=== PATIENT | female | born 1965 | race Hispanic/Latino ===

== ENCOUNTER 2021-10-06 13:26 | Outpatient (CLI) | payer MEDICARE | END 2021-10-06 13:27 | disposition home or self-care (01) | LOC: CSHSPEC 13:26 | PROVIDERS: ATTEND Orthopaedic Surgery | DX: M54.50 Low back pain, unspecified (principal); M54.16 Radiculopathy, lumbar region; M48.061 Spinal stenosis, lumbar region without neurogenic claudication | CPT/HCPCS: 71045; 72148 ==

== ENCOUNTER 2021-10-27 12:57 | Outpatient (CLI) | payer MEDICARE ==
[2021-10-27 14:39] LABS: Hemoglobin 10.7 g/dL (12.0-15.5); Mean Corpuscular HGB CONC 32.4 g/dL (32.0-36.0); Mean Corpuscular Hemoglobin 30.8 pg (27.0-33.0); Mean Corpuscular Volume 95.1 fl (81.6-98.3); Mean Platelet Volume 10.4 fl (7.4-10.4); Platelet Count 276 10x3/uL (150-450); Red Blood Cell (RBC) Count 3.47 10x6/uL (3.90-5.03); White Blood Cell (WBC) Count 9.8 10x3/uL (3.5-10.5)
[2021-10-27 15:02] LABS: INR-International Normal Ratio 0.9; PTT 26.6 sec (22.0-33.0); Prothrombin Time 10.5 sec (9.5-12.1)
[2021-10-27 15:05] LABS: Anion Gap 17 mmol/L (10-20); BUN (Urea Nitrogen) 27 mg/dL (9.8-20.1); Calc. Creatinine Clearance 0 mL/min (70-130); Calcium 8.6 mg/dL (7.8-10.44); Carbon Dioxide 27 mmol/L (22-29); Chloride 98 mmol/L (98-107); Glucose 452 mg/dL (70-105); Potassium 3.8 mmol/L (3.5-5.1); Sodium 138 mmol/L (136-145)
[2021-10-28 11:15] LABS: SARS-CoV-2 PCR by NAA Not Detected (NotDetected)
== END 2021-10-27 12:58 | disposition home or self-care (01) ==
LOC: CSHLAB 12:57
PROVIDERS: ATTEND Orthopaedic Surgery
DX: Z01.812 Encounter for preprocedural laboratory examination (principal); Z20.822 Contact with and (suspected) exposure to COVID-19; M54.50 Low back pain, unspecified; M54.16 Radiculopathy, lumbar region
CPT/HCPCS: 80048; 85027; 85610; 85730; 86850; 86900; 86901; U0003; U0005

== ENCOUNTER 2021-11-01 05:40 | Inpatient (IN) | payer MEDICARE, OTHER ==
[2021-10-25 12:01] VITALS: BMI 33.7
[2021-10-27 14:39] LABS: Hemoglobin 10.7 g/dL (12.0-15.5); Mean Corpuscular HGB CONC 32.4 g/dL (32.0-36.0); Mean Corpuscular Hemoglobin 30.8 pg (27.0-33.0); Mean Corpuscular Volume 95.1 fl (81.6-98.3); Mean Platelet Volume 10.4 fl (7.4-10.4); Platelet Count 276 10x3/uL (150-450); Red Blood Cell (RBC) Count 3.47 10x6/uL (3.90-5.03); White Blood Cell (WBC) Count 9.8 10x3/uL (3.5-10.5)
[2021-10-27 15:02] LABS: INR-International Normal Ratio 0.9; PTT 26.6 sec (22.0-33.0); Prothrombin Time 10.5 sec (9.5-12.1)
[2021-10-27 15:05] LABS: Anion Gap 17 mmol/L (10-20); BUN (Urea Nitrogen) 27 mg/dL (9.8-20.1); Calc. Creatinine Clearance 0 mL/min (70-130); Calcium 8.6 mg/dL (7.8-10.44); Carbon Dioxide 27 mmol/L (22-29); Chloride 98 mmol/L (98-107); Glucose 452 mg/dL (70-105); Potassium 3.8 mmol/L (3.5-5.1); Sodium 138 mmol/L (136-145)
[2021-10-28 11:15] LABS: SARS-CoV-2 PCR by NAA Not Detected (NotDetected)
[2021-11-01] MEDS ORDERED: Lidocaine 1% PF 5 ML VIAL ONE (06:29)
[2021-11-01] MEDS ORDERED: PROPOFOL 20 ML ONE (06:29)
[2021-11-01] MEDS ORDERED: Succinylcholine 200 MG/10 ml SYRINGE FS ONE (06:30)
[2021-11-01] MEDS ORDERED: Lidocaine 1% MPF 2 ML VIAL ONE (06:31)
[2021-11-01] MEDS ORDERED: Famotidine/PF 20 mg/2ml Vial ONE (06:32)
[2021-11-01] MEDS ORDERED: Promethazine HCl 25 MG/ML VIAL ONE (06:35)
[2021-11-01] MEDS ORDERED: HYDROmorphone 0.5 MG/0.5 ML SYRINGE ONE ×2 (06:36→06:37)
[2021-11-01] MEDS ORDERED: Propofol 1,000 MG/100 ML VIAL IV ONE (06:37)
[2021-11-01] MEDS ORDERED: Bupivacaine 0.25% HCL 30 ML VIAL ONE (06:42)
[2021-11-01] MEDS ORDERED: EPINEPHrine 1 MG/ML AMP ONE (06:42)
[2021-11-01] MEDS ORDERED: Insulin Regular 300 UNITS/3 ML VIAL ONE (06:44)
[2021-11-01] MEDS ORDERED: Morphine 4 MG/ML VIAL ONE ×2 (07:44→08:51)
[2021-11-01] MEDS ORDERED: ceFAZolin 2 GM/Dextrose 50 ML IVPB ONE (09:04)
[2021-11-01] MEDS ORDERED: Midazolam HCl 2 mg/2 ml Vial ONE (09:14)
[2021-11-01] MEDS ORDERED: ePHEDrine Sulfate 50 MG/10 ML VIAL ONE (10:11)
[2021-11-01] MEDS ORDERED: Dexamethasone 4 mg/ml Vial ONE (10:35)
[2021-11-01] MEDS ORDERED: Ondansetron PF 4 MG/2 ML Vial ONE (10:35)
[2021-11-01] MEDS ORDERED: Morphine 4 MG/ML VIAL SLOW IVP PRN (13:08)
[2021-11-01] MEDS ORDERED: traZODone HCl 50 MG TAB PO PRN (13:11)
[2021-11-01] MEDS ORDERED: TETANUS AND DIPHTHERIA TOX/PF 0.5 ML DISP.SYRIN IM SCH (13:15)
[2021-11-01] MEDS ORDERED: Labetalol HCl 100 MG/20 ML VIAL ONE (14:30)
[2021-11-01] MEDS ORDERED: Dextrose 5% in Water 1,000 ML IV PRN (16:48)
[2021-11-01] MEDS ORDERED: Dextrose 50% Abboject 50 ML SYRINGE SLOW IVP PRN (16:48)
[2021-11-01] MEDS ORDERED: hydrALAZINE 20 MG/ML VIAL SLOW IVP PRN (16:53)
[2021-11-01] MEDS: HumaLOG 300 UNITS/3 ML VIAL SC PRN ×2 (17:49→21:42)
[2021-11-01] MEDS ORDERED: FLU VACC QS2021-22(6MOS UP)/PF 60 MCG/0.5 ML SYRINGE IM ONE (18:00)
[2021-11-01] MEDS: HYDROcodone/Acetaminophen 10/325 mg Tablet PO PRN (21:29)
[2021-11-01] MEDS: Aspirin 81 mg Enteric Coated Tablet PO SCH (21:30)
[2021-11-01] MEDS: Gabapentin 400 MG CAP PO SCH (21:30)
[2021-11-01] MEDS: Cyclobenzaprine 10 MG TAB PO SCH (21:30)
[2021-11-01] MEDS: Torsemide 20 MG TAB PO SCH (21:31)
[2021-11-01] MEDS: ceFAZolin 2 GM/Dextrose 50 ML 2 GM in Premix Bag 1 BAG IVPB SCH (21:32)
[2021-11-02] MEDS: HYDROcodone/Acetaminophen 10/325 mg Tablet PO PRN ×2 (05:57→20:28)
[2021-11-02] MEDS: HumaLOG 300 UNITS/3 ML VIAL SC PRN ×4 (05:57→20:29)
[2021-11-02] MEDS ORDERED: Ventolin HFA Inhaler 60 PUFF INHALER INH PRN (09:00)
[2021-11-02] MEDS ORDERED: Carvedilol 25 MG TAB PO SCH (09:00)
[2021-11-02] MEDS: Gabapentin 400 MG CAP PO SCH ×2 (09:33→20:27)
[2021-11-02] MEDS: Clopidogrel Bisulfate 75 MG TAB PO SCH (09:33)
[2021-11-02] MEDS: Ezetimibe 10 MG TAB PO SCH (09:33)
[2021-11-02] MEDS: Aspirin 81 mg Enteric Coated Tablet PO SCH ×2 (09:34→20:27)
[2021-11-02] MEDS: Cyclobenzaprine 10 MG TAB PO SCH ×2 (09:34→20:27)
[2021-11-02] MEDS: Atorvastatin Calcium 40 MG TAB PO SCH (09:34)
[2021-11-02] MEDS: FLUoxetine HCl 20 MG CAP PO SCH (09:34)
[2021-11-02] MEDS: ceFAZolin 2 GM/Dextrose 50 ML 2 GM in Premix Bag 1 BAG IVPB SCH ×2 (09:35→20:28)
[2021-11-02] MEDS: Torsemide 20 MG TAB PO SCH ×2 (09:38→20:27)
[2021-11-02] MEDS ORDERED: Lantus 1000 UNITS/10 ML VIAL SC SCH (09:45)
[2021-11-02] MEDS: Carvedilol 25 MG TAB PO SCH ×2 (14:48→20:28)
[2021-11-03] MEDS: HYDROcodone/Acetaminophen 10/325 mg Tablet PO PRN (05:37)
[2021-11-03] MEDS: ceFAZolin 2 GM/Dextrose 50 ML 2 GM in Premix Bag 1 BAG IVPB SCH (08:01)
[2021-11-03] MEDS: Gabapentin 400 MG CAP PO SCH ×2 (08:03→20:22)
[2021-11-03] MEDS: Atorvastatin Calcium 40 MG TAB PO SCH (08:04)
[2021-11-03] MEDS: Ezetimibe 10 MG TAB PO SCH (08:05)
[2021-11-03] MEDS: FLUoxetine HCl 20 MG CAP PO SCH (08:05)
[2021-11-03] MEDS: Cyclobenzaprine 10 MG TAB PO SCH ×2 (08:05→20:07)
[2021-11-03] MEDS: Aspirin 81 mg Enteric Coated Tablet PO SCH ×2 (08:05→20:07)
[2021-11-03] MEDS: traMADol HCl 50 MG TAB PO PRN (08:06)
[2021-11-03] MEDS: Lantus 1000 UNITS/10 ML VIAL SC SCH (08:06)
[2021-11-03] MEDS: Carvedilol 25 MG TAB PO SCH ×2 (08:57→20:22)
[2021-11-03] MEDS: Torsemide 20 MG TAB PO SCH (08:59)
[2021-11-03] MEDS: Clopidogrel Bisulfate 75 MG TAB PO SCH (10:00)
[2021-11-03] MEDS ORDERED: Sodium Chloride 0.9% 1,000 ML IV SCH (11:15)
[2021-11-03 12:06] LABS: #Eosinphils 0.1 10x3/uL (0.0-0.5); #Neutrophils 8.3 10x3/uL (1.5-8.4); %Basophils 0.3 % (0.0-2.0); %Eosinophils 1.1 % (0.0-6.0); %Monocytes 8.9 % (0.0-10.0); %Neutrophils 73.3 % (40.0-75.0); Hemoglobin 8.9 g/dL (12.0-15.5); Mean Corpuscular HGB CONC 31.6 g/dL (32.0-36.0); Mean Corpuscular Hemoglobin 30.7 pg (27.0-33.0); Mean Corpuscular Volume 97.2 fl (81.6-98.3); Mean Platelet Volume 10.6 fl (7.4-10.4); Platelet Count 212 10x3/uL (150-450); RBC Distribution Width 12.9 % (11.5-14.5); White Blood Cell (WBC) Count 11.3 10x3/uL (3.5-10.5)
[2021-11-03 12:12] LABS: Anion Gap 13 mmol/L (10-20); BUN (Urea Nitrogen) 38 mg/dL (9.8-20.1); Calc. Creatinine Clearance 35 mL/min (70-130); Calcium 8.3 mg/dL (7.8-10.44); Carbon Dioxide 26 mmol/L (22-29); Chloride 105 mmol/L (98-107); Glucose 68 mg/dL (70-105); Potassium 3.8 mmol/L (3.5-5.1); Sodium 140 mmol/L (136-145)
[2021-11-03 20:48] LABS: Actual Bicarbonate (HCO3a) 25.8 mEq/L (22-28); Base Excess (BEa) 0.4 mEq/L (-2.0 to +3.0); CO2 Tension 45.2 mmHg (35.0-45.0); Calcium, Ionized (arterial) 1.04 mmol/L (1.12-1.30); Carboxyhemoglobin (COHb) 0.5 gm% (0.0-3.0); O2 Tension (PaO2), arterial 64.9 mmHg (80.0-100.0); Potassium - ABG Lab 4.1 mmol/L (3.70-5.30); Puncture Site RBA; pH, Arterial 7.37 (7.35-7.45)
[2021-11-04 04:12] LABS: #Eosinphils 0.1 10x3/uL (0.0-0.5); #Monocytes 1.2 10x3/uL (0.0-1.1); #Neutrophils 11.4 10x3/uL (1.5-8.4); %Basophils 0.1 % (0.0-2.0); %Eosinophils 0.8 % (0.0-6.0); %Lymphocytes 10.4 % (18.0-47.0); %Monocytes 8.7 % (0.0-10.0); %Neutrophils 79.6 % (40.0-75.0); Hemoglobin 8.8 g/dL (12.0-15.5); Mean Corpuscular HGB CONC 32.2 g/dL (32.0-36.0); Mean Corpuscular Hemoglobin 31.2 pg (27.0-33.0); Mean Corpuscular Volume 96.8 fl (81.6-98.3); Mean Platelet Volume 10.4 fl (7.4-10.4); Platelet Count 230 10x3/uL (150-450); RBC Distribution Width 12.7 % (11.5-14.5); Red Blood Cell (RBC) Count 2.82 10x6/uL (3.90-5.03); White Blood Cell (WBC) Count 14.3 10x3/uL (3.5-10.5)
[2021-11-04 04:18] LABS: Anion Gap 14 mmol/L (10-20); BUN (Urea Nitrogen) 39 mg/dL (9.8-20.1); Calc. Creatinine Clearance 36 mL/min (70-130); Calcium 8.3 mg/dL (7.8-10.44); Carbon Dioxide 25 mmol/L (22-29); Chloride 105 mmol/L (98-107); Potassium 4.2 mmol/L (3.5-5.1); Sodium 140 mmol/L (136-145)
[2021-11-04 04:21] LABS: Glucose 44 mg/dL (70-105)
[2021-11-04] MEDS: Carvedilol 25 MG TAB PO SCH ×2 (09:11→21:03)
[2021-11-04] MEDS: Cyclobenzaprine 10 MG TAB PO SCH ×2 (09:13→21:03)
[2021-11-04] MEDS: Aspirin 81 mg Enteric Coated Tablet PO SCH ×2 (09:13→21:03)
[2021-11-04] MEDS: FLUoxetine HCl 20 MG CAP PO SCH (09:13)
[2021-11-04] MEDS: Lantus 1000 UNITS/10 ML VIAL SC SCH (09:14)
[2021-11-04] MEDS: Atorvastatin Calcium 40 MG TAB PO SCH (09:14)
[2021-11-04] MEDS: Gabapentin 400 MG CAP PO SCH (09:15)
[2021-11-04] MEDS: Ezetimibe 10 MG TAB PO SCH (10:49)
[2021-11-04] MEDS: Clopidogrel Bisulfate 75 MG TAB PO SCH (10:49)
[2021-11-04] MEDS: HumaLOG 300 UNITS/3 ML VIAL SC PRN (17:21)
[2021-11-05] MEDS: HYDROcodone/Acetaminophen 10/325 mg Tablet PO PRN ×2 (03:11→21:03)
[2021-11-05 05:16] LABS: #Monocytes 1.1 10x3/uL (0.0-1.1); %Basophils 0.2 % (0.0-2.0); %Eosinophils 0.3 % (0.0-6.0); %Lymphocytes 11.2 % (18.0-47.0); %Monocytes 9.8 % (0.0-10.0); %Neutrophils 78.2 % (40.0-75.0); Mean Corpuscular HGB CONC 32.8 g/dL (32.0-36.0); Mean Corpuscular Hemoglobin 31.1 pg (27.0-33.0); Mean Corpuscular Volume 94.9 fl (81.6-98.3); Mean Platelet Volume 10.5 fl (7.4-10.4); Platelet Count 225 10x3/uL (150-450); RBC Distribution Width 12.6 % (11.5-14.5); Red Blood Cell (RBC) Count 2.57 10x6/uL (3.90-5.03); White Blood Cell (WBC) Count 11.6 10x3/uL (3.5-10.5)
[2021-11-05 05:36] LABS: Anion Gap 14 mmol/L (10-20); BUN (Urea Nitrogen) 47 mg/dL (9.8-20.1); Calc. Creatinine Clearance 38 mL/min (70-130); Calcium 8.4 mg/dL (7.8-10.44); Carbon Dioxide 24 mmol/L (22-29); Chloride 105 mmol/L (98-107); Glucose 67 mg/dL (70-105); Potassium 4.2 mmol/L (3.5-5.1); Sodium 139 mmol/L (136-145)
[2021-11-05] MEDS ORDERED: Metolazone 5 MG TAB PO SCH (09:00)
[2021-11-05] MEDS ORDERED: Dextrose 5 %-0.45 % NaCl 1,000 ML IV SCH (09:00)
[2021-11-05] MEDS ORDERED: Sodium Chloride 0.45% 1,000 ML IV SCH (09:15)
[2021-11-05] MEDS: Carvedilol 25 MG TAB PO SCH ×2 (10:08→21:03)
[2021-11-05] MEDS: Aspirin 81 mg Enteric Coated Tablet PO SCH ×2 (10:08→21:03)
[2021-11-05] MEDS: Clopidogrel Bisulfate 75 MG TAB PO SCH (10:09)
[2021-11-05] MEDS: Ezetimibe 10 MG TAB PO SCH (10:09)
[2021-11-05] MEDS: Atorvastatin Calcium 40 MG TAB PO SCH (10:10)
[2021-11-05] MEDS: FLUoxetine HCl 20 MG CAP PO SCH (10:10)
[2021-11-05] MEDS: Morphine 4 MG/ML VIAL SLOW IVP PRN ×3 (10:11→17:25)
[2021-11-05] MEDS: HumaLOG 300 UNITS/3 ML VIAL SC PRN (17:13)
[2021-11-06 00:11] LABS: Bilirubin Neg (Negative); Blood, Urine 50 (Negative); Clarity Cloudy (Clear); Glucose, Urine (Dipstick) Normal (Negative); Ketone, Urine Negative (Negative); Leukocyte 25 (Negative); Nitrite Negative (Negative); Protein, Urine (Dipstick) 100 mg/dl (Neg-Trace); Urobilinogen Normal mg/dL (Less than 2)
[2021-11-06 00:26] LABS: Bacteria/HPF 3+ HPF (None Seen); Yeast-Budding 1+ HPF (None Seen)
[2021-11-06 00:27] LABS: Urine Culture Reflex No No
[2021-11-06 05:23] LABS: #Eosinphils 0.1 10x3/uL (0.0-0.5); #Neutrophils 6.1 10x3/uL (1.5-8.4); %Basophils 0.2 % (0.0-2.0); %Eosinophils 1.5 % (0.0-6.0); %Lymphocytes 15.8 % (18.0-47.0); %Monocytes 11.9 % (0.0-10.0); %Neutrophils 70.3 % (40.0-75.0); Mean Corpuscular HGB CONC 31.5 g/dL (32.0-36.0); Mean Corpuscular Hemoglobin 30.7 pg (27.0-33.0); Mean Corpuscular Volume 97.4 fl (81.6-98.3); Mean Platelet Volume 10.4 fl (7.4-10.4); Platelet Count 237 10x3/uL (150-450); RBC Distribution Width 12.6 % (11.5-14.5); Red Blood Cell (RBC) Count 2.28 10x6/uL (3.90-5.03); White Blood Cell (WBC) Count 8.7 10x3/uL (3.5-10.5)
[2021-11-06 05:27] LABS: Anion Gap 12 mmol/L (10-20); BUN (Urea Nitrogen) 51 mg/dL (9.8-20.1); Calc. Creatinine Clearance 42 mL/min (70-130); Calcium 8.4 mg/dL (7.8-10.44); Carbon Dioxide 25 mmol/L (22-29); Chloride 102 mmol/L (98-107); Glucose 139 mg/dL (70-105); Potassium 4.3 mmol/L (3.5-5.1); Sodium 135 mmol/L (136-145)
[2021-11-06] MEDS: HYDROcodone/Acetaminophen 10/325 mg Tablet PO PRN ×4 (06:00→20:47)
[2021-11-06] MEDS: Clopidogrel Bisulfate 75 MG TAB PO SCH (08:28)
[2021-11-06] MEDS: Atorvastatin Calcium 40 MG TAB PO SCH (08:28)
[2021-11-06] MEDS: Carvedilol 25 MG TAB PO SCH ×2 (08:28→20:46)
[2021-11-06] MEDS: FLUoxetine HCl 20 MG CAP PO SCH (08:28)
[2021-11-06] MEDS: Ezetimibe 10 MG TAB PO SCH (08:28)
[2021-11-06] MEDS: Aspirin 81 mg Enteric Coated Tablet PO SCH ×2 (08:28→20:46)
[2021-11-06] MEDS: traMADol HCl 50 MG TAB PO PRN (08:35)
[2021-11-06] MEDS ORDERED: Docusate 100 MG CAP PO PRN (11:30)
[2021-11-06] MEDS: Ampicillin/Sulbactam 3 GM in Sodium Chloride 0.9% 100 ML IVPB SCH ×2 (16:31→20:48)
[2021-11-07] MEDS: HYDROcodone/Acetaminophen 10/325 mg Tablet PO PRN (00:51)
[2021-11-07 04:16] LABS: Anion Gap 14 mmol/L (10-20); BUN (Urea Nitrogen) 54 mg/dL (9.8-20.1); Calc. Creatinine Clearance 44 mL/min (70-130); Calcium 8.6 mg/dL (7.8-10.44); Carbon Dioxide 24 mmol/L (22-29); Chloride 102 mmol/L (98-107); Glucose 194 mg/dL (70-105); Potassium 4.3 mmol/L (3.5-5.1); Sodium 136 mmol/L (136-145)
[2021-11-07 04:28] LABS: #Eosinphils 0.1 10x3/uL (0.0-0.5); #Neutrophils 8.6 10x3/uL (1.5-8.4); %Basophils 0.1 % (0.0-2.0); %Lymphocytes 7.5 % (18.0-47.0); %Monocytes 9.2 % (0.0-10.0); %Neutrophils 81.8 % (40.0-75.0); Mean Corpuscular HGB CONC 32.4 g/dL (32.0-36.0); Mean Corpuscular Hemoglobin 31.4 pg (27.0-33.0); Mean Corpuscular Volume 96.9 fl (81.6-98.3); Mean Platelet Volume 10.7 fl (7.4-10.4); Platelet Count 286 10x3/uL (150-450); RBC Distribution Width 12.2 % (11.5-14.5); Red Blood Cell (RBC) Count 2.55 10x6/uL (3.90-5.03); White Blood Cell (WBC) Count 10.5 10x3/uL (3.5-10.5)
[2021-11-07] MEDS: Ampicillin/Sulbactam 3 GM in Sodium Chloride 0.9% 100 ML IVPB SCH ×4 (04:33→21:48)
[2021-11-07] MEDS: Clopidogrel Bisulfate 75 MG TAB PO SCH (08:59)
[2021-11-07] MEDS: Aspirin 81 mg Enteric Coated Tablet PO SCH ×2 (08:59→21:49)
[2021-11-07] MEDS: Carvedilol 25 MG TAB PO SCH ×2 (08:59→21:49)
[2021-11-07] MEDS: Atorvastatin Calcium 40 MG TAB PO SCH (08:59)
[2021-11-07] MEDS: Ezetimibe 10 MG TAB PO SCH (08:59)
[2021-11-07] MEDS: FLUoxetine HCl 20 MG CAP PO SCH (09:00)
[2021-11-07] MEDS ORDERED: Bisacodyl 10 MG SUPP PR PRN (10:38)
[2021-11-07] MEDS ORDERED: Fleet Enema 133 ML BOT PR SCH (12:00)
[2021-11-07] MEDS: HumaLOG 300 UNITS/3 ML VIAL SC PRN ×2 (12:03→16:47)
[2021-11-07] MEDS ORDERED: Lantus 1000 UNITS/10 ML VIAL SC SCH (21:00)
[2021-11-08] MEDS: Ampicillin/Sulbactam 3 GM in Sodium Chloride 0.9% 100 ML IVPB SCH (04:48)
[2021-11-08 05:57] LABS: #Eosinphils 0.1 10x3/uL (0.0-0.5); #Neutrophils 6.9 10x3/uL (1.5-8.4); %Basophils 0.1 % (0.0-2.0); %Eosinophils 1.3 % (0.0-6.0); %Lymphocytes 12.6 % (18.0-47.0); %Monocytes 11.2 % (0.0-10.0); %Neutrophils 74.3 % (40.0-75.0); Mean Corpuscular HGB CONC 31.4 g/dL (32.0-36.0); Mean Corpuscular Volume 98.7 fl (81.6-98.3); Mean Platelet Volume 10.7 fl (7.4-10.4); Platelet Count 278 10x3/uL (150-450); RBC Distribution Width 12.4 % (11.5-14.5); Red Blood Cell (RBC) Count 2.26 10x6/uL (3.90-5.03); White Blood Cell (WBC) Count 9.3 10x3/uL (3.5-10.5)
[2021-11-08 06:12] LABS: Anion Gap 13 mmol/L (10-20); BUN (Urea Nitrogen) 52 mg/dL (9.8-20.1); Calc. Creatinine Clearance 40 mL/min (70-130); Calcium 8.5 mg/dL (7.8-10.44); Carbon Dioxide 25 mmol/L (22-29); Chloride 104 mmol/L (98-107); Glucose 195 mg/dL (70-105); Potassium 4.3 mmol/L (3.5-5.1); Sodium 138 mmol/L (136-145)
[2021-11-08 07:34] VITALS: BP 138/63; TEMP 97
[2021-11-08] MEDS: FLUoxetine HCl 20 MG CAP PO SCH (08:36)
[2021-11-08] MEDS: Ezetimibe 10 MG TAB PO SCH (08:36)
[2021-11-08] MEDS: Aspirin 81 mg Enteric Coated Tablet PO SCH (08:37)
[2021-11-08] MEDS: Clopidogrel Bisulfate 75 MG TAB PO SCH (08:37)
[2021-11-08] MEDS: Atorvastatin Calcium 40 MG TAB PO SCH (08:37)
[2021-11-08] MEDS: Carvedilol 25 MG TAB PO SCH (08:37)
== END 2021-11-08 11:28 | DRG 453 ==
LOC: CSHSDC 05:40 → CSHTELE 14:57
PROVIDERS: ADMIT Orthopaedic Surgery; ATTEND Orthopaedic Surgery
PROC: 0SG10AJ Fusion of 2 or more Lumbar Vertebral Joints with Interbody Fusion Device, Posterior Approach, Anterior Column, Open Approach (ICD-10-PCS; principal; 2021-11-01)
PROC: 0SG1071 Fusion of 2 or more Lumbar Vertebral Joints with Autologous Tissue Substitute, Posterior Approach, Posterior Column, Open Approach (ICD-10-PCS; 2021-11-01)
PROC: 0SB20ZZ Excision of Lumbar Vertebral Disc, Open Approach (ICD-10-PCS; 2021-11-01)
PROC: 01NB0ZZ Release Lumbar Nerve, Open Approach (ICD-10-PCS; 2021-11-01)
DX: M48.062 Spinal stenosis, lumbar region with neurogenic claudication (principal); G93.41 Metabolic encephalopathy; J69.0 Pneumonitis due to inhalation of food and vomit; N17.9 Acute kidney failure, unspecified; I13.0 Hypertensive heart and chronic kidney disease with heart failure and stage 1 through stage 4 chronic kidney disease, or unspecified chronic kidney disease; I50.22 Chronic systolic (congestive) heart failure; Z20.822 Contact with and (suspected) exposure to COVID-19; M43.16 Spondylolisthesis, lumbar region; M41.86 Other forms of scoliosis, lumbar region; J44.9 Chronic obstructive pulmonary disease, unspecified; N18.30 Chronic kidney disease, stage 3 unspecified; D63.1 Anemia in chronic kidney disease; E11.22 Type 2 diabetes mellitus with diabetic chronic kidney disease; K59.00 Constipation, unspecified; E11.51 Type 2 diabetes mellitus with diabetic peripheral angiopathy without gangrene; E11.649 Type 2 diabetes mellitus with hypoglycemia without coma; Z95.1 Presence of aortocoronary bypass graft; Z95.810 Presence of automatic (implantable) cardiac defibrillator; Z89.422 Acquired absence of other left toe(s); Z87.891 Personal history of nicotine dependence
CPT/HCPCS: 36415; 36416; 36600; 70450; 71045; 72100; 80048; 81001; 82805; 85025; 85027; 85610; 85730; 86850; 86900; 86901; 94664; 94760; 94762; C1713; C1763; C1889; J0171; J0295; J0690; J1100; J1170; J1815; J2250; J2270; J2405; J2550; J2704; J3490; J7050; S0020; S0028; U0003; U0005

== ENCOUNTER 2022-05-19 16:27 | Outpatient (CLI) | payer MEDICARE, MEDICAID | END 2022-05-19 16:28 | disposition home or self-care (01) | LOC: CSHRAD 16:27 | PROVIDERS: ATTEND Surgery | DX: S91.302D Unspecified open wound, left foot, subsequent encounter (principal); L97.429 Non-pressure chronic ulcer of left heel and midfoot with unspecified severity; M86.9 Osteomyelitis, unspecified ==

== ENCOUNTER 2022-07-28 13:40 | Outpatient (CLI) | payer MEDICARE | END 2022-07-28 13:41 | disposition home or self-care (01) | LOC: CSHSPEC 13:40 | PROVIDERS: ATTEND Surgery | DX: L97.429 Non-pressure chronic ulcer of left heel and midfoot with unspecified severity (principal); Z95.0 Presence of cardiac pacemaker; I51.7 Cardiomegaly; I87.8 Other specified disorders of veins; L97.426 Non-pressure chronic ulcer of left heel and midfoot with bone involvement without evidence of necrosis; M86.9 Osteomyelitis, unspecified; L02.612 Cutaneous abscess of left foot; M62.9 Disorder of muscle, unspecified; R22.42 Localized swelling, mass and lump, left lower limb | CPT/HCPCS: 71045 ==